=== PATIENT | female | born 1965 | race Caucasian/White ===

== ENCOUNTER 2021-11-19 15:18 | Outpatient (CLI) | payer OTHER, SELFPAY ==
--- NOTE | ~2021-11-19 | CT_ITS ---
EXAMINATION: CT soft tissue neck w con DATE: 11/19/2021 15:48 INDICATION: Left-sided otalgia. Left face pain. Sialoadenitis. TECHNIQUE: Computed tomography (CT) of the neck was performed with 75 mL Omnipaque-350 intravenous co ntrast. Automated exposure control and iterative reconstruction technique were employed. The dose-laila gth product was 406.99 mGy-cm. COMPARISON: None FINDINGS: The parotid glands, submandibular glands, and sublingual glands are normal. No sialolith. T here are no pathologically enlarged lymph nodes. There is 0% stenosis of the proximal internal caroti d arteries relative to normal distal artery lumen diameters. The paranasal sinuses are clear. The mas toid air cells are normal. There is mild cervical spondylosis. IMPRESSION: 1. No etiology for the patient's symptoms. Reviewed, dictated and finalized at location E. [employer]
[2021-11-19 15:38] LABS: Estimated Glomerular Filt Rate > 60
== END 2021-11-19 15:19 ==
PROVIDERS: Visit Provider Otolaryngology
DX: H92.02 Otalgia, left ear (principal)
CPT/HCPCS: 70491; Q9967